=== PATIENT | female | born 1985 | race Caucasian/White ===

== ENCOUNTER → 2023-06-21 | Emergency (ER) | payer OTHER ==
[~2023-06-21] MED LIST: DIPHENHYDRAMINE 50 MG/ML VIAL ONE; FAMOTIDINE 20 MG/2 ML VIAL IV ONE; NA CHLORIDE 0.9% 1,000 ML ONE; predniSONE 20 MG TAB ONE
[2023-06-21 22:48] LABS: Absolute Lymphocytes (CBC) 0.6 K/uL (0.7-4.9); Hematocrit 39.8 % (36.0-45.0); Lymphocytes % 16.4 % (15.3-44.8); MCV 89.1 fL (80-100); MPV 8.5 fL (7.6-11.3); Platelets 263 thou/uL (152-406); RBC Red Blood Cell Count 4.47 M/uL (3.86-4.86)
[2023-06-21 23:09] LABS: Albumin 3.9 g/dL (3.4-5.0); Bilirubin Total 0.4 mg/dL (0.2-1.0); Potassium 4.1 mEq/L (3.5-5.1); Protein, Total 7.9 g/dL (6.4-8.2)
--- NOTE | 2023-06-21 23:33 | EDPHYS ---
Physician Documentation [facility] Name: Sharon Vargas Age: 37 yrs Sex: Female : 1985 Arrival Date: 06/21/2023 Time: 22:09 Bed 6 Private MD: ED Physician El Doherty HPI: 06/21 23:07 This 37 yrs old Female presents to ER via Ambulatory with complaints of Rash. rt 23:07 Patient presents to the ED with a rash. Started yesterday, has progressed become rt generalized. It is warm to the touch, but not appreciably pain. Patient reports that it is itching. Of note, patient recently completed a course of Bactrim for reported sinus infection. Denies mucosal involvement. Denies other acute complaints at this time, symptoms are moderate in severity, no other aggravating or elevating factors.. DIRECTOR PRESALES: 23:50 LMP 06/01/2023, unknown as9 Historical: - Allergies: 22:17 No Known Allergies; cm10 - PMHx: 22:17 None; cm10 - Immunization history:: Adult Immunizations up to date. - Social history:: Smoking status: Patient denies any tobacco usage or history of. ROS: 23:07 Constitutional: Negative for fever, chills, and weight loss, Cardiovascular: Negative rt for chest pain, palpitations, and edema, Respiratory: Negative for shortness of breath, cough, wheezing, and pleuritic chest pain, Abdomen/GI: Negative for abdominal pain, nausea, vomiting, diarrhea, and constipation, MS/Extremity: Negative for injury and deformity, Neuro: Negative for headache, weakness, numbness, tingling, and seizure, 23:07 Skin: Positive for rash, Itching, Exam: 23:07 Constitutional: This is a well developed, well nourished patient who is awake, alert, rt and in no acute distress. Head/Face: Normocephalic, atraumatic. ENT: Nares patent. No nasal discharge, no septal abnormalities noted. Tympanic membranes are normal and external auditory canals are clear. Oropharynx with no redness, swelling, or masses, exudates, or evidence of obstruction, uvula midline. Mucous membranes moist. Chest/axilla: Normal chest wall appearance and motion. Nontender with no deformity. No lesions are appreciated. Cardiovascular: Regular rate and rhythm with a normal S1 and S2. No gallops, murmurs, or rubs. Normal PMI, no JVD. No pulse deficits. Respiratory: Lungs have equal breath sounds bilaterally, clear to auscultation and percussion. No rales, rhonchi or wheezes noted. No increased work of breathing, no retractions or nasal flaring. Abdomen/GI: Soft, non-tender, with normal bowel sounds. No distension or tympany. No guarding or rebound. No evidence of tenderness throughout. Skin: Warm, dry with normal turgor. Normal color with no rashes, no lesions, and no evidence of cellulitis. MS/ Extremity: Pulses equal, no cyanosis. Neurovascular intact. Full, normal range of motion. Neuro: Awake and alert, GCS 15, oriented to person, place, time, and situation. Cranial nerves II-XII grossly intact. Motor strength 5/5 in all extremities. Sensory grossly intact. Cerebellar exam normal. Normal gait. 23:07 Skin: Warm, erythematous rash, diffusely on bilateral arms, abdomen, chest, legs, seems to be confluent, no target-like lesions. Vital Signs: 22:15 BP 116 / 82; Pulse 112; Resp 16; Temp 98; Pulse Ox 99% on R/A; Weight 59.87 kg; Height cm10 5 ft. 6 in. ; Pain 0/10; 22:20 BP 110 / 90; Pulse 84; Resp 18; Temp 97.8; Pulse Ox 99% on R/A; as9 23:00 BP 105 / 68; Pulse 86; Resp 18; Pulse Ox 99% on R/A; as9 23:40 BP 106 / 67; Pulse 86; Resp 17; Temp 97.6; Pulse Ox 99% on R/A; as9 22:15 Body Mass Index 21.31 (59.87 kg, 167.64 cm) cm10 22:15 Pain Scale: Adult cm10 MDM: 22:20 Patient medically screened. rt 06/22 00:09 Differential diagnosis: Dermatitis, infection, drug rash, SJS. Data reviewed: vital rt signs, nurses notes, lab test result(s). Consideration of Admission/Observation No mucosal involvement, afebrile, do not suspect Grover-Darin syndrome, rash does not have appearance of erythema multiforme. Generalized, less consistent with a cellulitis. Labs benign, vital signs improving, symptoms are improving with treatment in the ED, admission not required, strict return precautions were discussed.. I considered the following discharge prescriptions or medication management in the emergency department Medications were administered in the Emergency Department. See MAR. Counseling: I had a detailed discussion with the patient and/or guardian regarding the historical points, exam findings, and any diagnostic results supporting the discharge/admit diagnosis, lab results, the need for outpatient follow up. 06/21 22:25 Order name: CBC with Diff; Complete Time: 22:52 rt 06/21 22:25 Order name: CMP; Complete Time: 23:11 rt 06/21 22:25 Order name: Test, Serum; Complete Time: 23:11 rt Administered Medications: 06/21 22:51 Drug: NS 0.9% IV 1000 ml IV at 1 bolus Per protocol; 1000 mL bolus Route: IV; Rate: 1 as9 bolus; Site: right antecubital; 23:33 Follow up: IV Status: Completed infusion; IV Intake: 1000ml as9 22:52 Drug: diphenhydrAMINE IVP 50 mg IVP once Route: IVP; Site: right antecubital; as9 23:34 Follow up: Response: No adverse reaction; Marked relief of symptoms as9 22:58 Drug: Famotidine IVP 20 mg IVP once; dilute with 10 mL 0.9% NaCl; give over 2 minutes as9 Route: IVP; Site: right antecubital; 23:34 Follow up: Response: No adverse reaction; Marked relief of symptoms as9 23:49 Drug: predniSONE PO 20 mg PO once Route: PO; as9 23:49 Follow up: Response: No adverse reaction; Marked relief of symptoms as9 Disposition Summary: 06/21/23 23:32 Discharge Ordered Notes: Location: Home rt Problem: new rt Symptoms: have improved rt Condition: Stable rt Diagnosis - Dermatitis, unspecified rt Followup: rt - With: Private Physician - When: 2 - 3 days - Reason: Followup: rt - With: Emergency Department - When: As needed - Reason: Worsening of condition Discharge Instructions: - Discharge Summary Sheet rt - Rash, Adult rt Forms: - Medication Reconciliation Form rt - Thank You Letter rt - Antibiotic Education rt - Prescription Opioid Use rt - Patient Portal Instructions rt - Leadership Thank You Letter rt Prescriptions: - Prednisone 20 mg Oral tablet - take 2 tablets ORAL route once daily for 4 days; 8 tablet; Refills: 0, Product rt Selection Permitted Signatures: Dispatcher [employer] El Whaley MD MD rt Nayeli Patel RN RN cm10 Mark Banerjee RN RN as9
--- NOTE | 2023-06-21 23:33 | ER ---
Nurse's Notes [facility] Name: Sharon Vargas Age: 37 yrs Sex: Female : 1985 Arrival Date: 06/21/2023 Time: 22:09 Bed 6 Private MD: Diagnosis: Dermatitis, unspecified Presentation: 06/21 22:15 Chief complaint: Patient states: Generalized body rash onset yesterday. pt states that cm10 the rash is not improving and is spreading. Pt reports that the rash itches. Pt reports taking prednisone 5mg every 3 hrs with no relief. Coronavirus screen: Vaccine status: Patient reports receiving the 2nd dose of the covid vaccine. Client denies travel out of the [place] in the last 14 days. Ebola Screen: Patient denies travel to an Ebola-affected area in the 21 days before illness onset. No symptoms or risks identified at this time. Initial Sepsis Screen: Does the patient meet any 2 criteria? HR > 90 bpm. Does the patient have a suspected source of infection? No. Patient's initial sepsis screen is negative. Risk Assessment: Do you want to hurt yourself or someone else? Patient reports no desire to harm self or others. Onset of symptoms was June 21, 2023. 22:15 Method Of Arrival: Ambulatory cm10 22:15 Acuity: CHANDAN 3 cm10 CONTINUOUS IMPROVEMENT SPECIALIST: 23:50 LMP 06/01/2023, unknown as9 Historical: - Allergies: 22:17 No Known Allergies; cm10 - PMHx: 22:17 None; cm10 - Immunization history:: Adult Immunizations up to date. - Social history:: Smoking status: Patient denies any tobacco usage or history of. Screenin:08 [facility] ED Fall Risk Assessment (Adult) History of falling in the last 3 months, as9 including since admission No falls in past 3 months (0 pts) Confusion or Disorientation No (0 pts) Intoxicated or Sedated No (0 pts) Impaired Gait No (0 pts) Mobility Assist Device Used No (0 pt) Altered Elimination No (0 pt) Score/Fall Risk Level 0 - 2 = Low Risk. Abuse screen: Denies threats or abuse. Nutritional screening: No deficits noted. Tuberculosis screening: No symptoms or risk factors identified. Assessment: 22:30 Reassessment: patients states and complaints of rashes and itchiness all over her body. as9 22:30 General: Appears in no apparent distress. Behavior is calm, cooperative, appropriate as9 for age. Pain: Denies pain. Neuro: Level of Consciousness is awake, alert, obeys commands, Oriented to person, place, time, situation, Appropriate for age. Cardiovascular: Capillary refill < 3 seconds Patient's skin is warm and dry. Respiratory: Airway is patent Respiratory effort is even, unlabored, Respiratory pattern is regular, symmetrical. GI: No signs and/or symptoms were reported involving the gastrointestinal system. : No signs and/or symptoms were reported regarding the genitourinary system. EENT: No signs and/or symptoms were reported regarding the EENT system. Derm: Rash noted that is itchy, red, all over her body. Musculoskeletal: Circulation, motion, and sensation intact. Range of motion: intact in all extremities. Vital Signs: 22:15 BP 116 / 82; Pulse 112; Resp 16; Temp 98; Pulse Ox 99% on R/A; Weight 59.87 kg; Height cm10 5 ft. 6 in. ; Pain 0/10; 22:20 BP 110 / 90; Pulse 84; Resp 18; Temp 97.8; Pulse Ox 99% on R/A; as9 23:00 BP 105 / 68; Pulse 86; Resp 18; Pulse Ox 99% on R/A; as9 23:40 BP 106 / 67; Pulse 86; Resp 17; Temp 97.6; Pulse Ox 99% on R/A; as9 22:15 Body Mass Index 21.31 (59.87 kg, 167.64 cm) cm10 22:15 Pain Scale: Adult cm10 ED Course: 22:12 Patient arrived in ED. [id number] 22:12 El Doherty MD is Attending Physician. rt 22:17 Triage completed. cm10 22:17 Arm band placed on Patient placed in an exam room, on a stretcher. cm10 22:19 Rolf Rice, EDUARD is Primary Nurse. rv 22:50 Patient has correct armband on for positive identification. Bed in low position. Call as9 light in reach. Side rails up X 1. 22:52 Test, Serum Sent. as9 22:52 CMP Sent. as9 22:52 Inserted saline lock: 20 gauge in right antecubital area, using aseptic technique. as9 Blood collected. 23:50 No provider procedures requiring assistance completed. IV discontinued, intact, as9 bleeding controlled, No redness/swelling at site. Pressure dressing applied. 23:51 Provided Education on: discharge medication and instruction given and explained well to as9 the patient.. Administered Medications: 22:51 Drug: NS 0.9% IV 1000 ml IV at 1 bolus Per protocol; 1000 mL bolus Route: IV; Rate: 1 as9 bolus; Site: right antecubital; 23:33 Follow up: IV Status: Completed infusion; IV Intake: 1000ml as9 22:52 Drug: diphenhydrAMINE IVP 50 mg IVP once Route: IVP; Site: right antecubital; as9 23:34 Follow up: Response: No adverse reaction; Marked relief of symptoms as9 22:58 Drug: Famotidine IVP 20 mg IVP once; dilute with 10 mL 0.9% NaCl; give over 2 minutes as9 Route: IVP; Site: right antecubital; 23:34 Follow up: Response: No adverse reaction; Marked relief of symptoms as9 23:49 Drug: predniSONE PO 20 mg PO once Route: PO; as9 23:49 Follow up: Response: No adverse reaction; Marked relief of symptoms as9 Medication: 23:08 VIS not applicable for this client. as9 Intake: 23:33 IV: 1000ml; Total: 1000ml. as9 Outcome: 23:32 Discharge ordered by . rt 23:50 Discharged to home ambulatory, as9 23:50 Condition: good 23:50 Discharge instructions given to patient, Instructed on discharge instructions, follow up and referral plans. medication usage, Demonstrated understanding of instructions, follow-up care, medications, 23:52 Patient left the ED. as9 Signatures: Rolf Rice, RN RN rv Payal Traore [email or web address] El Doherty MD MD rt Nayeli Patel RN RN cm10 Mark Banerjee RN RN as9
[2023-06-22 00:28] VITALS: BP 106/67; TEMP 97.6; O2SAT 99
== END ==
LOC: ER 22:09
DX: L30.9 Dermatitis, unspecified (principal)
CPT/HCPCS: 85025; 36415; 84703; 80053; J7512; J1200; J7030; 96361; 96374; 96375; 99284